=== PATIENT | male | born 1995 | race African-American/Black ===

== ENCOUNTER 2020-02-22 22:28 | Emergency (ER) | payer MEDICAID ==
[~2020-02-22] VITALS: Ht 177.8 cm; Wt 90.2 kg
[2020-02-22 22:30] VITALS: BP 110/80
[2020-02-22] MEDS ORDERED: azithromycin 250mg tablet PO ONE (23:45)
[2020-02-22] MEDS ORDERED: CefTRIAXone 250MG IM Kit w/LIDOcaine IM ONE (23:45)
== END 2020-02-23 00:30 | disposition home or self-care (01) ==
LOC: ER 22:29
DX: Z20.2 Contact with and (suspected) exposure to infections with a predominantly sexual mode of transmission (principal)
CPT/HCPCS: 36415; 86592; 96372; 99283; J0696